=== PATIENT | female | born 1990 | race Caucasian/White ===

== ENCOUNTER 2021-02-13 15:53 | Emergency (ER) | payer OTHER ==
[~2021-02-13 15:53] MED LIST: LATUDA20 MG PO
== END 2021-02-13 16:58 | disposition home or self-care (01) ==
LOC: ER1 15:53
DX: S50.362A Insect bite (nonvenomous) of left elbow, initial encounter (principal); F31.9 Bipolar disorder, unspecified; F17.210 Nicotine dependence, cigarettes, uncomplicated; Z88.8 Allergy status to other drugs, medicaments and biological substances; W57.XXXA Bitten or stung by nonvenomous insect and other nonvenomous arthropods, initial encounter
CPT/HCPCS: 99283